=== PATIENT | male | born 1995 | race Asian ===

== ENCOUNTER 2018-06-05 11:23 | Emergency (ER) | payer SELFPAY ==
[~2018-06-05] VITALS: Ht 172.7 cm; Wt 86.4 kg
[2018-06-05] MEDS ORDERED: KETOROLAC TROMETHAMINE 60 MG/2 ML VIAL IM ONE (14:15)
[2018-06-05] MEDS ORDERED: ACETAMINOPHEN 325 MG TABLET PO ONE (14:15)
[2018-06-05 14:41] VITALS: BP 121/68
== END 2018-06-05 14:48 | disposition home or self-care (01) ==
LOC: EMS 11:23
DX: S83.92XA Sprain of unspecified site of left knee, initial encounter (principal); X50.1XXA Overexertion from prolonged static or awkward postures, initial encounter; Y93.67 Activity, basketball; Y92.89 Other specified places as the place of occurrence of the external cause; Y99.8 Other external cause status
CPT/HCPCS: 73562; 96372; 99284; J1885